=== PATIENT | male | born 1995 | race Caucasian/White ===

== ENCOUNTER 2017-10-09 12:26 | Emergency (ER) | payer BC ==
[2017-10-09] MEDS ORDERED: Lidocaine 1% 50 ML MDV SUBCUT STA (13:17)
--- NOTE | 2017-10-09 13:18 | EDM.PDOC ---
ED HPI GENERAL MEDICAL PROBLEM - General Chief Complaint: Skin Complaint Stated Complaint: Abdominal pain Time Seen by Provider: 10/09/17 13:05 Source of Information: Reports: Patient, RN Notes Reviewed History Limitations: Reports: No Limitations - History of Present Illness INITIAL COMMENTS - FREE TEXT/NARRATIVE: 21 year old male presents to the ED with redness, swelling, and pain to his left lower abdomen. Symptoms started 3-4 days ago and have been progressively worsening. He was seen at a walk-in clinic in [place] yesterday and was started on Bactrim DS. He's had two doses. He's concerned because his symptoms have not improved. He's had no fever or chills. He feels he has swelling to his groin region as well. He admits to feeling anxious and lightheaded. He has no dysuria or penile discharge. No rash or lesions to genitals. He feels his left testicle may be swollen as well. He is otherwise healthy, takes no medications, and denies medical history. Lower Abdomen Pain Score (Numeric/FACES): 8 - Related Data Allergies Allergy/AdvReac Type Severity Reaction Status Date / Time No Known Allergies Allergy Verified 10/09/17 12:51 Home Meds: Home Meds Sulfamethoxazole/Trimethoprim [Bactrim Ds Tablet] 1 ea PO BID 10/09/17 [History] Past Medical History - Past Health History Medical/Surgical History: Denies Medical/Surgical History - Past Surgical History GI Surgical History: Reports: Appendectomy Social & Family History - Family History Family Medical History: Noncontributory - Tobacco Use Smoking Status *Q: Current Some Day Smoker Years of Tobacco use: 1 Packs/Tins Daily: 0.1 Second Hand Smoke Exposure: Yes - Caffeine Use Caffeine Use: Reports: Coffee - Recreational Drug Use Recreational Drug Use: Yes Recreational Drug Type: Reports: Marijuana/Hashish Recreational Drug Use Frequency: Monthly ED ROS GENERAL - Review of Systems Review Of Systems: See Below Constitutional: Reports: No Symptoms. Denies: Fever, Chills Respiratory: Reports: No Symptoms. Denies: Cough Cardiovascular: Reports: Lightheadedness GI/Abdominal: Denies: Abdominal Pain, Nausea, Vomiting : Reports: No Symptoms. Denies: Discharge, Dysuria, Frequency Skin: Reports: Erythema, Change in Color, Lumps ED EXAM, SKIN/RASH Exam: See Below Exam Limited By: No Limitations General Appearance: Alert, WD/WN, No Apparent Distress, Anxious Respiratory/Chest: No Respiratory Distress, Lungs Clear, Normal Breath Sounds Cardiovascular: Regular Rate, Rhythm, Tachycardia GI/Abdominal: Normal Bowel Sounds, Soft, Non-Tender, No Distention (Male) Exam: Normal Inspection, Circumcised, Inguinal Lymphadenopathy (left ) . No: Penile Lesions, Rash, Scrotal Swelling, Scrotum Tenderness (L), Scrotum Tenderness (R), Testicular Tenderness (L), Testicular Tenderness (R), Urethral Discharge Skin: Warm, Dry, Other (abscess to left hypogastric region. Warm and hot. Tender to touch. Small scap noted suggestive of ingrown hair. ) ED SKIN PROCEDURES - I&D Site: Left lower abdomen Skin Prep: Chlorhexidine (Hibiciens) Local Anesthesia: Lidocaine: 1% Plain Local Anesthetic Volume: 2cc Area Incised With: 11 Blade Drainage: Purulent, Bloody, Moderate Amount Probed to Break Up Loculations: Yes Packed With: 1/2 in. Iodoform Sterile Dressinx4(s) Complications: No Complication Description: Consent obtained prior to procedure Course - Vital Signs Last Recorded V/S: Last Vital Signs Temp 98.1 F 10/09/17 12:43 Pulse 104 H 10/09/17 12:43 Resp 18 10/09/17 12:43 BP 146/74 H 10/09/17 12:43 Pulse Ox 100 10/09/17 12:43 - Orders/Labs/Meds Orders: Active Orders 24 hr Category Date Time Status CULTURE ANAEROBIC + SMEAR [RM] Stat Lab 10/09/17 13:50 Received Meds: Medications Discontinued Medications Generic Name Dose Route Start Last Admin Trade Name Judson PRN Reason Stop Dose Admin Lidocaine HCl 50 ml 10/09/17 13:17 10/09/17 13:28 Xylocaine 1% SUBCUT 10/09/17 13:18 50 ml NOW STA Administration - Re-Assessments/Exams Free Text/Narrative Re-Assessment/Exam: Abscess to left lower abdomen. Consent obtained and I&D performed. Patient tolerated well. Purulent drainage sent for culture. Patient educated on wound care. Instructed to f/u in the clinic on Wednesday for recheck. He is to leave dressing in place if possible. He was educated on return precautions. He is to continue the bactrim DS as prescribed. Discharge instructions as documented. Departure - Departure Time of Disposition: 14:07 Disposition: Home, Self-Care 01 Condition: Good Clinical Impression: Abscess, Encounter for incision and drainage procedure - Discharge Information Instructions: Abscess, Eyes-ms-[place], Incision and Drainage, Care After Referrals: PCP,None [Primary Care Provider] - Forms: ED Department Discharge Additional Instructions: Abscess with incision and drainage Try to keep initial dressing in place for 48 hours. May replace the gauze but do not remove the packing Cover with plastic wrap and tape all 4 sides before showering. Continue your antibiotic as prescribed Tylenol or Ibuprofen as needed for pain Apply warm packs as tolerated No heavy lifting Call our clinic, [facility], at [phone] to schedule a f/u on Wednesday for wound recheck and packing removal. Return to clinic if signs or symptoms of worsening infection arise, including increased redness, swelling, drainage, or fever - My Orders Last 24 Hours: My Active Orders 10/09/17 13:50 CULTURE ANAEROBIC + SMEAR [RM] Stat - Assessment/Plan Last 24 Hours: My Active Orders 10/09/17 13:50 CULTURE ANAEROBIC + SMEAR [RM] Stat
== END 2017-10-09 14:25 | disposition home or self-care (01) ==
LOC: JD.ED 12:26
DX: L02.211 Cutaneous abscess of abdominal wall (principal); F17.210 Nicotine dependence, cigarettes, uncomplicated
CPT/HCPCS: 10060; 87075; 87077; 87186; 87205; 99282-25; 99283-25

== ENCOUNTER 2017-11-17 19:23 | Emergency (ER) | payer BC ==
--- NOTE | 2017-11-17 20:03 | EDM.PDOC ---
ED HPI GENERAL MEDICAL PROBLEM - General Chief Complaint: Abdominal Pain Stated Complaint: BLEEDING FROM BELLYBUTTON Time Seen by Provider: 11/17/17 19:37 Source of Information: Reports: Patient History Limitations: Reports: No Limitations - History of Present Illness INITIAL COMMENTS - FREE TEXT/NARRATIVE: Patient reports irritation of the navel or bellybutton. He was cleansing the area with a Q-tip tonight when it actively started bleeding. Sternum of course and he came to the ED. Of note he said recent appendectomy with laparoscopic surgery. The wound itself appears to be healing well. He states he did pick out some lint and debris and some odiferous substance from the umbilicus. Onset: Today Onset Date: 11/17/17 Onset Time: 19:00 Duration: Minutes: Location: Reports: Abdomen (Umbilicus.) Quality: Reports: Ache, Other Severity: Mild (Active bleeding) Improves with: Reports: None Worsens with: Reports: None Context: Reports: Other (Was picking lint another odiferous debris out of his bellybutton with a Q-tip when it started bleeding.). Denies: Activity, Exercise , Lifting, Sick Contact, Trauma Associated Symptoms: Reports: No Other Symptoms Treatments [employer]: Reports: Other (see below) (None.) - Related Data Allergies Allergy/AdvReac Type Severity Reaction Status Date / Time No Known Allergies Allergy Verified 10/09/17 12:51 Home Meds: Home Meds . [No Known Home Meds] 11/17/17 [History] Past Medical History - Past Health History Medical/Surgical History: Denies Medical/Surgical History Dermatologic History: Reports: Other (See Below) Other Dermatologic History: cyst - Past Surgical History GI Surgical History: Reports: Appendectomy Social & Family History - Family History Family Medical History: Noncontributory - Tobacco Use Smoking Status *Q: Never Smoker Years of Tobacco use: 1 Packs/Tins Daily: 0.1 Second Hand Smoke Exposure: Yes - Caffeine Use Caffeine Use: Reports: Coffee - Recreational Drug Use Recreational Drug Use: No Recreational Drug Type: Reports: Marijuana/Hashish Recreational Drug Use Frequency: Monthly - Living Situation & Occupation Living situation: Reports: Single Occupation: Employed ED ROS GENERAL - Review of Systems Review Of Systems: See Below Constitutional: Reports: No Symptoms HEENT: Reports: No Symptoms Respiratory: Reports: No Symptoms Cardiovascular: Reports: No Symptoms Endocrine: Reports: No Symptoms GI/Abdominal: Reports: Other : Reports: No Symptoms (Bleeding from the umbilicus is what brought him into the ED today.) Musculoskeletal: Reports: Other Skin: Reports: Other Neurological: Reports: No Symptoms (Bleeding from the umbilicus.) Psychiatric: Reports: No Symptoms Hematologic/Lymphatic: Reports: No Symptoms ED EXAM, GI/ABD - Physical Exam Exam: See Below Exam Limited By: Uncooperative General Appearance: WD/WN, Anxious (Moderately anxious.), Mild Distress GI/Abdominal Exam: Other (Examination she does umbilicus shows that he has active bleeding from the granulomatous-like tissue in the superior aspect of the umbilicus. It is clean with no follow order at this time.) Extremities: Other (Examination of his left clavicle shows a healing deformity of the mid lateral shaft indicating likely a old clavicular fracture that is healed in near normal anatomical alignment. Reassured there is no severe problem there.) Neurological: Alert, Oriented, CN II-XII Intact, Normal Cognition, Normal Gait Psychiatric: Normal Affect, Normal Mood Skin Exam: Warm, Dry, Intact, Normal Color, No Rash Course - Vital Signs Last Recorded V/S: Last Vital Signs Temp 36.3 C 11/17/17 19:43 Pulse 67 11/17/17 19:43 Resp 20 11/17/17 19:43 BP 129/81 11/17/17 19:43 Pulse Ox 100 11/17/17 19:43 - Radiology Interpretation Free Text/Narrative:: 22-year-old male presents to the ED primarily for assessment of bleeding from his umbilicus. States he went to clean it out with a Q-tip as he is a very deep navel and it started actively bleeding. This of course scared him and made him come to the ED. He noticed that he had an order for substance in his umbilicus. He's had recent appendectomy with laparoscopic surgery in those wounds appear to be healing well at the inferior aspect of the umbilicus. The umbilicus itself is deep and there appears to be granulation tissue and superior one third of the umbilicus in the midline. It was cauterized with silver nitrate and no further bleeding occurred. Patient has had staph infection in the past. Patient advised to feel the umbilicus it with a Q-tip with bacitracin Polysporin every night at bedtime for the next week to allow this to heal. He is to clean the umbilicus at least once weekly however real well after showering. This should prevent further problems. Departure - Departure Time of Disposition: 20:01 Disposition: Home, Self-Care 01 Condition: Fair Clinical Impression: Omphalitis in adult - Discharge Information Instructions: Omphalitis, Pediatric Referrals: Patsy Montanez [Primary Care Provider] - Forms: ED Department Discharge Additional Instructions: Evaluation the emergency room tonight in regards to leading from the bellybutton after trying to deeply cleanse the area with a Q-tip. Recent appendectomy done through laparoscopic surgery. On inspection you have a deep navel which makes it more prone to collecting debris such as lint from her clothing. This in turn helps staff aureus bacteria that on everybody skin start to grow in an area like bad words moist and warm. This in turn causes the skin to become infected and breakdown and bleed easily. There is an area of granulation tissue forming likely since surgery in the superior part of the umbilicus. This area was therefore cauterized with silver nitrate to stop the bleeding. Treatment at home is to daily cleanse the area with soap and water after showering. Then apply bacitracin or Polysporin ointment into the bellybutton every night at bedtime even with a Q-tip so that he gets deep enough in there. Do this for about 5-7 days to allow the area to heal. Usually that will be enough to clear up the problem completely. It may recur because of the deep venous of your navel making more prone to this type of infection.
== END 2017-11-17 20:10 | disposition home or self-care (01) ==
LOC: SUPCPDRO 19:23 → JD.ED 19:23
DX: L08.82 Omphalitis not of newborn (principal)
CPT/HCPCS: 99282; 99283